=== PATIENT | female | born 1985 | race Two or more races ===

== ENCOUNTER 2020-04-24 06:47 | Inpatient (IN) ==
[2020-04-24] MEDS ORDERED: MORPHINE SULFATE INJ 2 MG INJ IVP PRN (06:55)
[2020-04-24] MEDS ORDERED: PHENERGAN INJ 25 MG IM PRN ×2 (06:55→13:46)
[2020-04-24] MEDS ORDERED: REGLAN INJ 10 MG VIAL IVP PRN (06:55)
[2020-04-24] MEDS ORDERED: PITOCIN IVP ONE (06:55)
[2020-04-24] MEDS ORDERED: PITOCIN ONE (06:59)
[2020-04-24] MEDS ORDERED: D5 1/2 NS 1000 ML 1,000 ML IV ONE (06:59)
[2020-04-24] MEDS ORDERED: BETADINE SOLN ONE (07:00)
[2020-04-24] MEDS ORDERED: D5LR 1L W PITOCIN 10 UNITS/L 10 UNITS/1,000 ML BAG IV ONE (07:01)
[2020-04-24] MEDS: D5 1/2 NS 1000 ML 1,000 ML IV SCH ×2 (07:15→21:22)
[2020-04-24 07:35] LABS: BASOPHILS % (AUTO) 0.6 % (0.2-1.0); EOSINOPHILS # (AUTO) 0.1 x10^3/uL (0.0-0.2); EOSINOPHILS % (AUTO) 1.1 % (0.9-2.9); HEMATOCRIT 29.2 % (36.0-47.0); HEMOGLOBIN 9.6 g/dL (12.0-16.0); LYMPHOCYTES # (AUTO) 1.4 X10^3/uL (1.3-2.9); LYMPHOCYTES % (AUTO) 18.8 % (21.0-51.0); MEAN CORPUSCULAR HGB CONC 32.8 g/dL (33.0-35.0); MEAN CORPUSCULAR VOLUME 79.3 fL (80.0-100.0); MEAN PLATELET VOLUME 9.5 fL (7.4-11.0); MONOCYTES # (AUTO) 0.5 x10^3/uL (0.3-0.8); MONOCYTES % (AUTO) 6.5 % (0.0-13.0); NEUTROPHILS # (AUTO) 5.3 x10^3/uL (2.2-4.8); PLATELET COUNT 178 X10^3/uL (150.0-450.0); RED BLOOD COUNT 3.69 X10^6/uL (3.5-5.4); RED CELL DISTRIBUTION WIDTH 15.6 % (11.6-16.5); WHITE BLOOD COUNT 7.2 X10^3/uL (3.6-10.0)
[2020-04-24 07:42] LABS: BLOOD UREA NITROGEN 12 mg/dL (7-18); CALCIUM 8.3 mg/dL (8.5-10.1); CARBON DIOXIDE 21.8 mmol/L (21-32); CHLORIDE 102 mmol/L (98-107); CREATININE 0.46 mg/dL (0.55-1.02); SODIUM 135 mmol/L (136-145); eGFR NON BLACK RACES > 60 (>60)
[2020-04-24 07:53] LABS: BILIRUBIN,URINE NEGATIVE (NEGATIVE); BLOOD/HEMOGLOBIN,URINE 1+ (NEGATIVE); GLUCOSE, URINE NEGATIVE (NEGATIVE); KETONES,URINE NEGATIVE (NEGATIVE); LEUKOCYTE ESTERASE ,URINE 3+ (NEGATIVE); NITRITES,URINE NEGATIVE (NEGATIVE); PH,URINE 6.5 (5.0 - 8.0); PROTEIN,URINE NEGATIVE (NEGATIVE); UROBILINOGEN,URINE NORMAL (NORMAL)
[2020-04-24 07:58] LABS: APPEARANCE,URINE HAZY (CLEAR); COLOR,URINE YELLOW (YELLOW)
[2020-04-24 07:59] LABS: BACTERIA,URINE NEGATIVE /HPF (NEGATIVE); MUCUS,URINE FEW /HPF (NEGATIVE); RBC,URINE 0-2 /HPF (0-3); SQUAMOUS EPITHELIAL CELL,UR MODERATE /HPF (NEGATIVE)
[2020-04-24] MEDS ORDERED: LR 1000 ML IV 1,000 ML IV ONE ×2 (08:01→10:13)
[2020-04-24] MEDS ORDERED: FENTANYL INJ 100 mcg ONE (10:12)
[2020-04-24] MEDS ORDERED: FENTANYL 2 mcg/mL-ROPIV 0.1%-NS EPIDURAL 200 ML EPI ONE (10:13)
[2020-04-24] MEDS: D5 1/2 NS 1L W PITOCIN 20 UNITS/L 20 UNITS/1,000 ML BAG IV ONE ×2 (13:00→13:55)
[2020-04-24] MEDS: D5 1/2 NS 1000 ML 1,000 ML with PITOCIN 20 UNITS IV SCH ×4 (13:00→23:02)
[2020-04-24] MEDS ORDERED: MOTRIN TAB 800 MG PO PRN ×2 (13:46→13:47)
[2020-04-24] MEDS ORDERED: AMBIEN PO PRN (13:47)
[2020-04-24] MEDS ORDERED: DERMOPLAST PAIN RELIEF SPRAY TOP PRN (13:47)
[2020-04-25] MEDS: D5 1/2 NS 1000 ML 1,000 ML IV SCH ×3 (03:57→18:08)
[2020-04-25 06:08] LABS: HEMATOCRIT 26.3 % (36.0-47.0); HEMOGLOBIN 8.7 g/dL (12.0-16.0)
[2020-04-25] MEDS: D5 1/2 NS 1000 ML 1,000 ML with PITOCIN 20 UNITS IV SCH ×4 (06:23→16:25)
[2020-04-25] MEDS ORDERED: PRENATAL PLUS PO SCH (09:00)
[2020-04-25] MEDS ORDERED: NS 100 ML IV 100 ML with VENOFER 400 MG IV NR ×2 (09:16)
[2020-04-26] MEDS: D5 1/2 NS 1000 ML 1,000 ML with PITOCIN 20 UNITS IV SCH ×4 (04:53→06:11)
[2020-04-26 09:32] VITALS: BP 139/66
== END 2020-04-26 10:40 | disposition home or self-care (01) | DRG 807 ==
LOC: LD 06:47 → MED/SURG 14:23
PROVIDERS: ADMIT Obstetrics & Gynecology Obstetrics; ATTEND Obstetrics & Gynecology Obstetrics
DX: Z20.828 Contact with and (suspected) exposure to other viral communicable diseases; Z37.0 Single live birth; O80 Encounter for full-term uncomplicated delivery; Z3A.39 39 weeks gestation of pregnancy